=== PATIENT | female | born 1995 | race Caucasian/White ===

== ENCOUNTER 2021-07-07 16:38 | Emergency (ER) | payer OTHER ==
[2021-07-07 17:06] VITALS: BP 115/74; PULSE 79; TEMP 97.8; BMI 25.0
[2021-07-07 18:23] LABS: HEMATOCRIT 38.7 % (32.4-45.2); HEMOGLOBIN 13.6 GM/dL (10.7-15.3); MCHC 35.1 g/dl (32.0-36.0); MEAN CELL VOLUME 88.1 fl (80-96); MEAN PLT VOLUME 8.5 fl (7.5-11.1); PLATELET COUNT 223 10^3/uL (134-434); RBC 4.39 M/mm3 (3.60-5.2); RDW 13.3 % (11.6-15.6); WHITE BLOOD COUNT 6.1 K/mm3 (4.0-10.0)
== END 2021-07-07 21:07 | disposition home or self-care (01) ==
LOC: JER 16:38
DX: N93.8 Other specified abnormal uterine and vaginal bleeding (principal)
CPT/HCPCS: 36415; 76830-TC; 85027; 99284-25

== ENCOUNTER 2023-09-27 20:24 | Emergency (ER) | payer OTHER ==
[2023-09-27 20:34] VITALS: BP 110/63; PULSE 85; RESP 18; TEMP 98.1; BMI 26.2
[2023-09-27] MEDS ORDERED: LORATADINE 10 MG TABLET ONE (21:48)
[2023-09-27] MEDS: LORATADINE 10 MG TABLET PO ONE (21:49)
[2023-09-27] MEDS: TRIAMCINOLONE ACET 0.5% OINT 15 GM TUBE TP ONE (22:01)
[2023-09-27] MEDS ORDERED: ACETAMINOPHEN 500 MG TABLET (FP) ONE (22:12)
[2023-09-27] MEDS: ACETAMINOPHEN 500 MG TABLET (FP) PO ONE (22:13)
== END 2023-09-27 22:18 | disposition home or self-care (01) ==
LOC: JER 20:24 → JERFT 20:24
DX: R21 Rash and other nonspecific skin eruption (principal); R51.9 Headache, unspecified
CPT/HCPCS: 99283-25

== ENCOUNTER 2023-11-13 01:44 | Emergency (ER) | payer OTHER ==
[2023-11-13 01:54] VITALS: BP 117/74; PULSE 72; RESP 18; TEMP 98.3; BMI 26.9
[2023-11-13 02:20] LABS: URINE APPEARANCE CLEAR; URINE BILIRUBIN NEGATIVE (NEGATIVE); URINE COLOR YELLOW; URINE GLUCOSE (UA) NEGATIVE (NEGATIVE); URINE KETONE NEGATIVE (NEGATIVE); URINE LEUK ESTERASE NEGATIVE (NEGATIVE); URINE NITRITE NEGATIVE (NEGATIVE); URINE PROTEIN NEGATIVE (NEGATIVE); URINE UROBILINOGEN 0.2 mg/dL (0.2-1.0)
[2023-11-13 02:23] LABS: HCG,QUALITATIVE URINE Negative
[2023-11-13] MEDS: PHENAZOPYRIDINE HCL 100 MG TABLET (FP) PO ONE (02:51)
[2023-11-13] MEDS ORDERED: PHENAZOPYRIDINE HCL 100 MG TABLET (FP) ONE (02:51)
== END 2023-11-13 02:53 | disposition home or self-care (01) ==
LOC: JER 01:44
DX: R30.0 Dysuria (principal)
CPT/HCPCS: 81003; 84703; 87086; 99283-25

== ENCOUNTER 2024-03-16 02:35 | Emergency (ER) | payer OTHER ==
[2024-03-16 02:44] VITALS: BP 114/67; PULSE 80; RESP 16; TEMP 98.6; BMI 25.6
== END 2024-03-16 05:10 | disposition home or self-care (01) ==
LOC: JER 02:35
DX: T22.112A Burn of first degree of left forearm, initial encounter (principal); X12.XXXA Contact with other hot fluids, initial encounter; Y93.G3 Activity, cooking and baking
CPT/HCPCS: 99282-25

== ENCOUNTER 2024-04-13 05:23 | Emergency (ER) | payer OTHER ==
[2024-04-13 05:36] VITALS: BP 118/61; PULSE 90; RESP 18; TEMP 98.8; BMI 25.4
[2024-04-13 06:02] LABS: PH,URINE 6.5 (5.0-8.0); URINE APPEARANCE CLEAR; URINE BILIRUBIN NEGATIVE (NEGATIVE); URINE COLOR YELLOW; URINE GLUCOSE (UA) NEGATIVE (NEGATIVE); URINE KETONE NEGATIVE (NEGATIVE); URINE LEUK ESTERASE NEGATIVE (NEGATIVE); URINE NITRITE NEGATIVE (NEGATIVE); URINE PROTEIN NEGATIVE (NEGATIVE); URINE UROBILINOGEN 0.2 mg/dL (0.2-1.0)
[2024-04-13 07:28] LABS: POTASSIUM 4.1 mmol/L (3.5-5.1)
[2024-04-13 07:31] LABS: ALBUMIN 3.9 g/dl (3.4-5.0); BLOOD UREA NITROGEN 12.9 mg/dL (7-18); CALCIUM 9.3 mg/dL (8.5-10.1)
[2024-04-13 07:34] LABS: CREATININE 0.7 mg/dL (0.55-1.3)
[2024-04-13 07:36] LABS: BILIRUBIN,TOTAL 0.3 mg/dL (0.2-1); TOT PROT 7.1 g/dl (6.4-8.2)
[2024-04-13 07:45] LABS: BASO % 0.7 % (0-2.0); EOS % 2.6 % (0-4.5); HEMOGLOBIN 12.5 GM/dL (10.7-15.3); LYMPH % 36.2 % (8-40); MCH 29.9 pg (25.7-33.7); MCHC 33.9 g/dl (32.0-36.0); MEAN CELL VOLUME 88.2 fl (80-96); MEAN PLT VOLUME 8.7 fl (7.5-11.1); MONO % 8.5 % (3.8-10.2); PLATELET COUNT 235 10^3/uL (134-434); RBC 4.19 M/mm3 (3.60-5.2); RDW 13.5 % (11.6-15.6); WHITE BLOOD COUNT 6.2 K/mm3 (4.0-10.0)
== END 2024-04-13 08:11 | disposition left against medical advice (07) ==
LOC: JER 05:23
DX: R10.30 Lower abdominal pain, unspecified (principal); R10.2 Pelvic and perineal pain; R82.998 Other abnormal findings in urine
CPT/HCPCS: 36415; 80053; 81003; 84703; 85025; 87086; 87186; 99283-25